=== PATIENT | male | born 1950 | race Caucasian/White ===

== ENCOUNTER → 2016-04-23 | Outpatient (CLI) | payer OTHER ==
[~2016-04-23] MED LIST: ASPI81TA28 PO; CIPR1TAB10 PO; HYDR-5688 PO; METR-163 PO; MULT-190 PO; MULT-506 PO; OMEG10007 PO; SIMV40TA2 PO
== END | disposition home or self-care (01) ==
LOC: C.LABSPEC 20:13
PROVIDERS: ATTEND Internal Medicine
DX: K52.9 Noninfective gastroenteritis and colitis, unspecified (principal)

== ENCOUNTER → 2016-06-03 | Day surgery (SDC) | payer OTHER ==
[2016-05-23 09:46] VITALS: Ht 177.8 cm; Wt 88.6 kg
[~2016-06-03] VITALS: Ht 177.8 cm; Wt 88.6 kg
[~2016-06-03] MED LIST changes: -CIPR1TAB10 PO; +LIDOCAINE HCL 2% 2 ML VIAL (20MG/ML) ONE; -METR-163 PO; +MIDAZOLAM HCL 1 MG/ML 2ML VIAL ONE; +ONDANSETRON INJ 2 MG/ML 2 ML VIAL ONE; +PROPOFOL IV EMULSION 10 MG/ML 20 ML VIAL IV ONE
[2016-06-03 11:25] VITALS: TEMP 36.5
--- NOTE | 2016-06-03 11:59 | Endo History and Physical ---
History & Physical Date of Service: Jun 03, 2016. Chief Complaint: abd pain , hx of c-diff Referring Physician: Dr Tanner History of Present Illness 66 yo CM who presents for colonoscopy secondary to abdominal pain and history of C-diff. Past Surgical History Hx Cardiac Surgery: No Hx Internal Defibrillator: No Hx Pacemaker: No Hx Abdominal Surgery: Yes (HERNIA REPAIR) Hx of Implantable Prosthesis: No Hx Post-Op Nausea and Vomiting: No Hx Cancer Surgery: Yes (BCC REMOVALS) Hx Thoracic Surgery: No Hx Orthopedic: Yes (RT TSA) Hx Urinary Tract Surgery: No Family History IBD Social History Smoking Status: Never Smoker Hx Substance Use: No Hx Alcohol Use: Yes ("A COUPLE BEERS ON THE WEEKEND" ) Allergies Coded Allergies: Penicillins (Unverified Allergy, Unknown, HIVES, 05/23/16) Current Medications Reported Home Medications Medications Dose Route/Sig Max Daily Dose Days Date Category Multivitamin (Multivitamins) Tab 1 Tab PO QAM 04/04/16 Reported Ocuvite Preservision (Multivitamins/Minerals) 1 Tab Tab 1 Tab PO QAM 04/04/16 Reported [place]-3 (Fish Oil) 1 Ea Cap 2 Cap PO BID 04/04/16 Reported Aspirin Ec (Aspirin) 81 Mg Tab 81 Mg PO QAM 04/04/16 Reported Zocor (Simvastatin) 40 Mg Tab 40 Mg PO QPM 04/04/16 Reported Vital Signs Weight (Kilograms): 88.64 Height (Feet): 5 Height (Inches): 10 Date Time Temp Pulse Resp B/P Pulse Ox O2 Delivery O2 Flow Rate FiO2 06/03/16 11:25 36.5 60 20 157/87 95 Room Air Physical Exam General Appearance: WD/WN, no apparent distress Respiratory/Chest: Auscultation: breath sounds normal Cardiovascular: Heart Auscultation: RRR Abdomen: Bowel Sounds: normal Inspection & Palpation: soft, non-distended, no tenderness, guarding & rebound Assessment and Plan Assessment: 66 yo CM who presents for colonoscopy secondary to abdominal pain and history of C-diff. Plan: Proceed with colonoscopy.
--- NOTE | 2016-06-03 12:36 | GI REPORT ---
Procedure Date: 06/03/2016 12:12 PM Procedure: Colonoscopy Indications: Screening for colorectal malignant neoplasm Medicines: Monitored Anesthesia Care Complications: No immediate complications. Estimated Blood Loss: Estimated blood loss: none. Procedure: Pre-Anesthesia Assessment: - Prior to the procedure, a History and Physical was performed, and patient medications and allergies were reviewed. The patient's tolerance of previous anesthesia was also reviewed. The risks and benefits of the procedure and the sedation options and risks were discussed with the patient. All questions were answered, and informed consent was obtained. Prior Anticoagulants: The patient has taken aspirin, last dose was 1 day prior to procedure. ASA Grade Assessment: II - A patient with mild systemic disease. After reviewing the risks and benefits, the patient was deemed in satisfactory condition to undergo the procedure. After I obtained informed consent, the scope was passed under direct vision. Throughout the procedure, the patient's blood pressure, pulse, and oxygen saturations were monitored continuously. The scope was introduced through the anus and advanced to the terminal ileum. The colonoscopy was performed without difficulty. The patient tolerated the procedure well. The quality of the bowel preparation was good. The terminal ileum, ileocecal valve, appendiceal orifice, and rectum were photographed. Findings: A 5 mm polyp was found in the ascending colon. The polyp was sessile. The polyp was removed with a hot snare. Resection and retrieval were complete. Multiple small-mouthed diverticula were found in the sigmoid colon. Non-bleeding internal hemorrhoids were found during retroflexion. The hemorrhoids were small. Impression: - One 5 mm polyp in the ascending colon, removed with a hot snare. Resected and retrieved. - Diverticulosis in the sigmoid colon. - Non-bleeding internal hemorrhoids. Recommendation: - Resume previous diet. - Continue present medications. - Repeat colonoscopy for surveillance based on pathology results. - Return to primary care physician as previously scheduled. Jung Goetz DO 06/03/2016 12:36:00 PM This report has been signed electronically. Note Initiated On: 06/03/2016 12:12 PM I attest to the content of the Intraoperative Record and orders documented therein, exceptions below
--- NOTE | 2016-06-03 12:37 | Discharge Instructions ---
Endoscopy Patient Instructions Date / Procedure(s) Performed Jun 03, 2016. Colonoscopy Allergy Information Coded Allergies: Penicillins (Unverified Allergy, Unknown, HIVES, 05/23/16) Discharge Date / Findings Jun 03, 2016. Colon polyp Diverticulosis Internal hemorrhoids Medication Instructions OK to resume all medications today as prescribed Reported Home Medications Medications Dose Route/Sig Max Daily Dose Days Date Category Multivitamin (Multivitamins) Tab 1 Tab PO QAM 04/04/16 Reported Ocuvite Preservision (Multivitamins/Minerals) 1 Tab Tab 1 Tab PO QAM 04/04/16 Reported [place]-3 (Fish Oil) 1 Ea Cap 2 Cap PO BID 04/04/16 Reported Aspirin Ec (Aspirin) 81 Mg Tab 81 Mg PO QAM 04/04/16 Reported Zocor (Simvastatin) 40 Mg Tab 40 Mg PO QPM 04/04/16 Reported Provider Instructions Activity Restrictions - No exercising or heavy lifting for 24 hours. - Do not drink alcohol the day of the procedure. - Do not drive a car or operate machinery until the day after the procedure. - Do not make any important decisions or sign important papers in 24 hours after the procedure. Following Day: - Return to full activity which may include returning to work/school. Diet Start your diet with liquids and light foods (jello, soup, juice, toast). Then eat your usual diet if not nauseated. Treatment For Common After Affects For mild abdominal pain, bloating, or excessive gas: - Rest - Eat lightly - Lie on right side Follow-Up Information Follow-up with Dr Tanner as scheduled Anesthesia Information What You Should Know You have had a procedure that required some medicine to reduce anxiety and discomfort. This treatment is called moderate sedation. After receiving the treatment, you may be sleepy, but you will be able to breathe on your own. The effects of the treatment may last for several hours. Follow these instructions along with Activity/Diet recommendations noted above: * Do NOT do anything where dizziness or clumsiness would be dangerous. * Rest quietly at home today, then you can be up and about tomorrow. * Have a responsible person stay with you the rest of today. * You may have had an I.V. today. If so, you may take the dressing off later today. Recommendations Call your doctor if: * Trouble breathing * Continuous vomiting for more than 24 hours * Temperature above 101 degrees * Severe abdominal pain or bloating * Pain not relieved by pain medicine ordered * There is increased drainage or redness from any incision * A large amount of rectal bleeding greater than 2-3 tablespoons. (If you had a polyp/s removed or have hemorrhoids, a small amount of blood - from the rectum is to be expected.) * You have any unanswered questions or concerns. IN THE EVENT OF A SERIOUS EMERGENCY, GO TO THE NEAREST EMERGENCY ROOM Your discharge instructions were prepared by provider Jung Goetz. Patient Instructions Signature Page [facility] Patient (or Guardian) Signature/Date: I have read and understand the instructions given to me by my caregivers. Caregiver/RN/Doctor Signature/Date: The above-named patient and/or guardian has received patient instructions on this date. + Original Patient Signature Page (only) stays with chart. Please make copy for patient.
[2016-06-03 13:04] VITALS: BP 120/78; PULSE 54; O2SAT 95
--- NOTE | 2016-06-03 13:51 | Anesthesiology Progress Note ---
Anesthesia Post Op Note Date & Time Jun 03, 2016 at 13:50 Vital Signs Pain Intensity: 0 Vital Signs Past 12 Hours Date Time Temp Pulse Resp B/P Pulse Ox O2 Delivery O2 Flow Rate FiO2 06/03/16 13:04 54 20 120/78 95 Room Air 06/03/16 12:51 55 20 118/79 94 Room Air 06/03/16 12:40 58 20 120/74 96 Room Air 06/03/16 12:34 65 20 125/76 95 Room Air 06/03/16 11:25 36.5 60 20 157/87 95 Room Air Notes Mental Status: alert / awake / arousable, participated in evaluation Pt Amnestic to Procedure: Yes Nausea / Vomiting: adequately controlled Pain: adequately controlled Airway Patency, RR, SpO2: stable & adequate BP & HR: stable & adequate Hydration State: stable & adequate Anesthetic Complications: no major complications apparent
== END | disposition home or self-care (01) ==
LOC: C.GI 11:00
PROVIDERS: ATTEND Internal Medicine
DX: Z12.11 Encounter for screening for malignant neoplasm of colon (principal); D12.2 Benign neoplasm of ascending colon; K57.30 Diverticulosis of large intestine without perforation or abscess without bleeding; K64.8 Other hemorrhoids; Z88.0 Allergy status to penicillin; Z68.28 Body mass index [BMI] 28.0-28.9, adult

== ENCOUNTER → 2016-06-13 | Outpatient (CLI) | payer OTHER ==
[~2016-06-13] MED LIST changes: -LIDOCAINE HCL 2% 2 ML VIAL (20MG/ML) ONE; -MIDAZOLAM HCL 1 MG/ML 2ML VIAL ONE; -ONDANSETRON INJ 2 MG/ML 2 ML VIAL ONE; -PROPOFOL IV EMULSION 10 MG/ML 20 ML VIAL IV ONE
--- NOTE | 2016-06-13 14:00 | DIAGNOSTIC IMAGING REPORT ---
Limited abdominal ultrasound ABDOMEN FOR HERNIA CLINICAL HISTORY: INGUINAL HERNIA hernia TECHNIQUE: Ultrasound evaluation. Post Valsalva COMPARISON STUDY: None FINDINGS: Small fat-containing right inguinal hernia. This is reducible. There is no evidence of bowel containment. IMPRESSION: Small reducible fat-containing right inguinal hernia. Electronically signed by: Willem Crum M.D. 06/13/2016 1:59 PM Dictated Date/Time: 06/13/2016 1:57 PM
== END | disposition home or self-care (01) ==
LOC: C.ULTRBC 13:30
PROVIDERS: ATTEND Internal Medicine Geriatric Medicine
DX: K40.90 Unilateral inguinal hernia, without obstruction or gangrene, not specified as recurrent (principal)

== ENCOUNTER → 2016-07-09 | Outpatient (CLI) | payer OTHER ==
[2016-07-09 13:58] LABS: BASO % 0.6 %; BASO ABS # 0.03 K/uL (0-0.2); COMPLETE YES; EOS % 4.6 %; HEMATOCRIT 43.9 % (42-52); LYMPH % 35.4 %; LYMPH ABS # 1.78 K/uL (1.2-3.4); MEAN CELL VOLUME 87.5 fL (80-100); MEAN CORPUSCULAR HEMOGLOBIN 31.7 pg (25-34); MEAN CORPUSCULAR HGB CONC 36.2 g/dl (32-36); MONO % 10.3 %; NEUT % 49.1 %; PLATELET COUNT 227 K/uL (130-400); RED BLOOD COUNT 5.02 M/uL (4.7-6.1); WHITE BLOOD COUNT 5.03 K/uL (4.8-10.8)
[2016-07-09 14:19] LABS: BLOOD UREA NITROGEN 22 mg/dl (7-18); BUN/CREATININE RATIO 18.5 (10-20); CALCIUM 9.2 mg/dl (8.5-10.1); CARBON DIOXIDE 32 mmol/L (21-32); CHLORIDE 107 mmol/L (98-107); GLUCOSE 90 mg/dl (70-99); POTASSIUM 4.2 mmol/L (3.5-5.1); SODIUM 142 mmol/L (136-145)
== END | disposition home or self-care (01) ==
LOC: C.LABBC 09:48
PROVIDERS: ATTEND Surgery
DX: Z01.812 Encounter for preprocedural laboratory examination (principal); K40.90 Unilateral inguinal hernia, without obstruction or gangrene, not specified as recurrent

== ENCOUNTER → 2016-07-16 | Day surgery (SDC) | payer OTHER ==
[2016-07-11 15:00] VITALS: Ht 177.8 cm; Wt 88.6 kg
[~2016-07-16] VITALS: Ht 177.8 cm; Wt 88.6 kg
[~2016-07-16] MED LIST changes: +ATROPINE SULFATE 0.1 MG/ML 5ML SYR IV PRN; +BUPIVACAINE/EPINEPHRINE 0.5% MPF 1:200,000 30 ML VIAL ONE; +CEFAZOLIN 2000 MG/60 ML D5W IV SCH; +CLINDAMYCIN PHOS 150 MG/ML 2 ML VIAL IV SCH; +DEXAMETHASONE SOD INJ 4 MG/ML VIAL ONE; +EpHEDrine SULFATE INJ 50 MG/ML AMP IV PRN; +FENTANYL CITRATE INJ 50 MCG/1 ML 2 ML VIAL IV PRN; +FENTANYL CITRATE INJ 50 MCG/1 ML 2 ML VIAL ONE; +FLUMAZENIL 0.1 MG/1 ML 10 ML VIAL IV PRN; +HYDROCODONE/ACETAMOPHEN 5/325MG TAB PO PRN; +HYDROmorphone INJ 0.5 MG/0.5 ML SYR IV PRN; +IBUPROFEN 600 MG TAB PO PRN; +LABETALOL HCL IV 5 MG/ML 20ML IV PRN; +LACTATED RINGER'S 1000ML 1,000 ML IV SCH; +LIDOCAINE HCL 2% 2 ML VIAL (20MG/ML) ONE; +MEPERIDINE HCL 25 MG/ML CARP IV PRN; +MIDAZOLAM HCL 1 MG/ML 2ML VIAL ONE; +NALOXONE HCL 0.4 MG/1 ML VIAL/CARP IV PRN; +ONDANSETRON INJ 2 MG/ML 2 ML VIAL IV PRN; +ONDANSETRON INJ 2 MG/ML 2 ML VIAL ONE; +PHENYLEPHRINE 100MCG/ML 5ML SYR IV PRN; +PROPOFOL IV EMULSION 10 MG/ML 20 ML VIAL IV ONE; +SODIUM CHLORIDE 0.9% 1000ML 1,000 ML IV SCH
--- NOTE | 2016-07-16 07:53 | History & Physical Bridge Note ---
H&P Re-Evaluation Bridge Note: I have examined the patient, reviewed the History & Physical and in the interval since the performance of the History & Physical I have noted the following changes of clinical significance: No changes noted
--- NOTE | 2016-07-16 07:56 | Discharge Instructions-SurgCtr ---
Discharge Instructions Date of Service Jul 16, 2016. Visit Reason for Visit: Right Inguinal Hernia Discharge Discharge Diagnosis / Problem: same Discharge Goals Goal(s): Decrease discomfort, Improve function Activity Recommendations Activity Limitations: as noted below Lifting Limitations: no more than 10 pounds Exercise/Sports Limitations: until after follow-up appointment May Resume Sexual Activity: after follow-up appointment Shower/Bathe: tomorrow Anesthesia . Post Anesthesia Instructions: If you have had General Anesthesia or IV Sedation: * Do not drive today. * Resume driving when surgeon permits. * Do not make important decisions or sign legal documents today. * Call surgeon for: 1. Temperature elevations greater than 101 degrees F. 2. Uncontrollable pain. 3. Excessive bleeding. 4. Persistent nausea and vomiting. 5. Medication intolerance (nausea, vomiting or rash). * For nausea and vomiting use only clear liquids such as: tea, soda, bouillon until nausea subsides, then gradually increase diet as tolerated. * If you have any concerns or questions, call your surgeon's office. If physician is unavailable and it is an emergency, call 911 or go to the nearest emergency room. . Instructions / Follow-Up Instructions / Follow-Up follow up with dr. harrington in 1-2 weeks. call [phone] for any problems/ questions. Diet Recommendations Home Diet: resume previous diet Procedures Procedures Performed: open right inguinal hernia repair with mesh Pending Studies Studies pending at discharge: no Medical Emergencies . Who to Call and When: Medical Emergencies: If at any time you feel your situation is an emergency, please call 911 immediately. . Non-Emergent Contact Non-Emergency issues call your: Primary Care Provider, Surgeon Call Non-Emergent contact if: temperature is above 101, wound has increased drainage, wound has increased redness, wound has increased pain . . "Provider Documentation" section prepared by Scott Harrington.
--- NOTE | 2016-07-16 09:35 | [facility] Operative Report ---
Operative Report Operative Date Jul 16, 2016. Pre-Operative Diagnosis Right Inquinal Hernia Post-Operative Diagnosis large indirect and direct inguinal hernias Procedure(s) Performed open right inguinal hernia repair with plug/patch mesh Surgeon Dr. Harrington Photoengraving Photographer Surgeon(s) None Estimated Blood Loss 15ml Findings large direct and indirect inguinal hernia on right Specimens None Anesthesia LMA Complication(s) None Disposition Recovery Room / PACU I attest to the content of the Intraoperative Record and any orders documented therein. Any exceptions are noted below.
--- NOTE | 2016-07-16 10:04 | Anesthesia Progress Nt - [facility] ---
Anesthesia Post Op Note Date & Time Jul 16, 2016 at 10:03 Vital Signs Pain Intensity: 0 Vital Signs Past 12 Hours Date Time Temp Pulse Resp B/P Pulse Ox O2 Delivery O2 Flow Rate FiO2 07/16/16 10:01 133/90 07/16/16 09:59 62 8 97 07/16/16 09:59 57 8 07/16/16 09:55 134/84 07/16/16 09:54 59 5 98 07/16/16 09:54 59 5 07/16/16 09:50 131/85 07/16/16 09:49 58 3 98 07/16/16 09:49 58 3 07/16/16 09:48 60 12 07/16/16 09:48 60 12 97 07/16/16 09:45 128/84 07/16/16 09:43 59 11 07/16/16 09:43 62 11 97 07/16/16 09:40 132/89 07/16/16 09:38 58 12 07/16/16 09:38 60 12 97 07/16/16 09:37 60 12 07/16/16 09:37 60 12 98 07/16/16 09:35 125/104 07/16/16 09:33 36.6 60 18 131/92 98 Mask 8 07/16/16 09:32 61 15 07/16/16 09:32 60 15 131/92 98 07/16/16 07:09 36.5 61 16 155/99 96 Room Air Notes Mental Status: alert / awake / arousable, participated in evaluation Pt Amnestic to Procedure: Yes Nausea / Vomiting: adequately controlled Pain: adequately controlled Airway Patency, RR, SpO2: stable & adequate BP & HR: stable & adequate Hydration State: stable & adequate Anesthetic Complications: no major complications apparent
[2016-07-16 10:20] VITALS: TEMP 36.4
--- NOTE | 2016-07-16 10:35 | OPERATIVE REPORT ---
DATE OF OPERATION: 07/16/2016 PREOPERATIVE DIAGNOSIS: Right inguinal hernia. POSTOPERATIVE DIAGNOSIS: Large indirect as well as direct inguinal hernia. PROCEDURES: Open right inguinal hernia repair with plug and patch polypropylene mesh. SURGEON: Dr. Harrington. ESTIMATED BLOOD LOSS: Approximately 15 mL. COMPLICATIONS: No immediate. ANESTHESIA: General with laryngeal mask airway. OPERATIVE NOTE: After informed consent was obtained, the patient was taken to the operating suite and placed in the supine position. After successful placement of laryngeal mask airway, the right groin was shaved and sterilely prepped and draped in usual fashion. An inguinal incision was made in the right groin with a 15 blade scalpel and carried down through the soft tissue using electrocautery. The external oblique aponeurosis was skeletonized and a small incision made in it with a new 15 blade scalpel. Metzenbaum scissors were then used to extend this incision distally through the external ring as well as for several centimeters proximally. Once in the inguinal canal, we were able to dissect the cord and cord structures free from other surroundings structures. I was able to use a blunt fingertip gently tease the cord and cord structures off the pubic bone and put a [place] drain around it. As soon as we did this, there was noted a moderate to large direct inguinal hernia. It was easily reducible. I then began examining the cord and cord structures. Using blunt dissection and small amounts of electrocautery, I was able to identify a very large chronic hernia sac that was stuck to allow the cord structures. I was able to tediously tease this off the cord and cord structures down to its neck. I was then able to dunk this back down into the abdominal cavity. Because of the large nature of the defect as well as having two defects, I decided to use a plug and patch polypropylene. A medium size polypropylene mesh was placed into the large defect and secured surrounding muscle using interrupted 0 Ethibond. Once this was secured, I then used a pruitt holed piece of mesh as an onlay that would cover both hernias. It was secured distally to the Dain's ligament laterally along the shelving portion of Poupart's ligament and medially along the midline musculature. The "arms" of the mesh were wrapped around behind the cord and cord structures and again secured to underlying muscle. The mesh was not impinging on the cord structures. I did inject the periphery of it with Marcaine for postoperative analgesia. We then thoroughly irrigated the entire inguinal canal. There was adequate hemostasis at the end of the procedure. 2-0 Vicryl was then used to close the external oblique aponeurosis in running fashion. Soft tissue was irrigated and closed using 3-0 Vicryl and 4-0 Monocryl for the skin. Some additional Marcaine was injected around the skin and Dermabond glue used as a dressing. The patient was awakened, extubated, and transferred to recovery in stable condition. I attest to the content of the Intraoperative Record and any orders documented therein. Any exceptio ns are noted below.
[2016-07-16 10:40] VITALS: BP 140/83; PULSE 60; O2SAT 98
== END | disposition home or self-care (01) ==
LOC: X.SURG 06:56
PROVIDERS: ATTEND Surgery
DX: K40.90 Unilateral inguinal hernia, without obstruction or gangrene, not specified as recurrent (principal); K57.90 Diverticulosis of intestine, part unspecified, without perforation or abscess without bleeding; M47.816 Spondylosis without myelopathy or radiculopathy, lumbar region; E78.5 Hyperlipidemia, unspecified; I10 Essential (primary) hypertension; K64.8 Other hemorrhoids; M54.17 Radiculopathy, lumbosacral region; G25.81 Restless legs syndrome; D12.6 Benign neoplasm of colon, unspecified; Z98.890 Other specified postprocedural states